=== PATIENT | female | born 1950 | race Caucasian/White ===

== ENCOUNTER → 2024-01-01 11:04 | Outpatient (BNVA) | payer MEDICARE, MEDICAID, SELFPAY | PROVIDERS: PCP Internal Medicine Infectious Disease; Referring Provider Internal Medicine Infectious Disease; Visit Provider Specialist | DX: G56.03 Carpal tunnel syndrome, bilateral upper limbs (principal) | CPT/HCPCS: 99205 ==

== ENCOUNTER 2024-02-20 09:44 | Outpatient (CLI) | payer MEDICARE, MEDICAID, SELFPAY ==
--- NOTE | 2024-02-20 10:15 | MR_ITS ---
WS: [id number] MRI THORACIC SPINE WITH CONTRAST TECHNIQUE: Sagittal T1, T2 and STIR imaging. Axial T2 imaging. Post gadolinium imaging was obtained. CLINICAL INFORMATION: M54.12 - Radiculopathy, cervical region COMPARISON: None. FINDINGS: Some images degraded due to motion. Mild thoracic curve. No acute compression. Cord signal appears normal. Prominent LEFT paracentral protrusion at T8-T9 with slight indentation on the thoracic cord with mild central canal stenosis. Tiny central protrusion at T6-7. A few tiny protrusions at T2-T4 without sig nificant spinal canal narrowing. Moderate facet arthropathy in the lower thoracic spine. Central disc bulging at L1-L2 with mild centr al canal stenosis. Mild bony foraminal narrowing LEFT T7-8, bilateral T8-9, bilateral T9-10, and RIGHT T10-11. Normal paravertebral soft tissues. Normal caliber descending thoracic aorta. MR/MR thoracic spine wo/w [id number] IMPRESSION: 1. Mild thoracic curve. No acute compression. Cord signal appears normal. 2. Prominent LEFT paracentral protrusion at T8-T9 with slight indentation on t he thoracic cord with mild central canal stenosis. 3. No abnormal gadolinium enhancement.
[2024-02-20] MEDS: gadobenate dimeglumine 20 mL vial IV (10:47)
--- NOTE | 2024-02-20 11:00 | MR_ITS ---
WS: [id number] MR CERVICAL SPINE WO/W COMPARISON: None. HISTORY: M54.12 - Radiculopathy, cervical region TECHNIQUE: Sagittal T1, T2 and T2 inversion recovery; axial T2, T2 gradient and fiesta. Post gadolini um imaging with fat saturation technique. FINDINGS: Slight exaggeration of the normal cervical lordosis. Disc bulging worse at C3-4. ACDF C4-C6 . Small disc protrusions at C6-7 and C7-T1. Small protrusion at T2-3. No abnormal gadolinium enhancem ent. C2-3: Mild facet arthropathy. Mild bilateral bony foraminal narrowing. C3-4: Slight retrolisthesis with central disc bulging. Impingement on the ventral cervical cord with moderate to severe central canal stenosis. Slight indentation and flattening of the cervical cord at this level. Cord signal appears normal. Spinal canal measures 5.1 mm at this level. C4-5: ACDF. Moderate facet arthropathy. Mild RIGHT bony foraminal narrowing. Spinal canal is patent. C5-6: Postoperative changes ACDF. Mild RIGHT and no significant LEFT foraminal narrowing. C6-7: Shallow central protrusion. Mild central canal stenosis. Mild bilateral bony foraminal narrowin g. C7-T1: Disc osteophytic ridging. Spinal canal and foramen are patent. Small vessel changes in the crispin. MR/MR cervical spine wo/w [id number] IMPRESSION: 1. Moderate to severe central canal stenosis C3-C4 with indentation and flatte edwin of the cervical cord with slight kinking. Cord signal appears normal. Comp lete effacement of the surrounding CSF. Spinal canal measures 5.1 mm at this le vickie. Recommend spine surgery consultation. 2. Prior postoperative changes ACDF C4-C6. 3. Mild central canal stenosis C6-7 with a small central protrusion. 4. Otherwise mild bony foraminal narrowing worse Bilateral C3-4, RIGHT C4-5, R IGHT C5-C6, and bilateral C6-7. 5. Small nodules LEFT thyroid. Recommend further evaluation with ultrasound.
== END 2024-02-20 09:45 | disposition home or self-care (01) ==
LOC: RAD 09:45
PROVIDERS: PCP Internal Medicine Infectious Disease; Visit Provider Specialist
DX: M54.12 Radiculopathy, cervical region (principal); M54.10 Radiculopathy, site unspecified; M48.02 Spinal stenosis, cervical region
CPT/HCPCS: 72156; 72157; A9577

== ENCOUNTER → 2024-10-21 15:00 | Outpatient (BNVA) | payer MEDICARE, MEDICAID, SELFPAY | PROVIDERS: PCP Internal Medicine Infectious Disease; Visit Provider Specialist | DX: R29.90 Unspecified symptoms and signs involving the nervous system (principal); G56.00 Carpal tunnel syndrome, unspecified upper limb; R03.0 Elevated blood-pressure reading, without diagnosis of hypertension | CPT/HCPCS: 99214 ==